=== PATIENT | male | born 1955 | race Caucasian/White ===

== ENCOUNTER 2016-12-26 14:22 | Observation (INO) | payer BC, OTHER ==
[2016-12-26 14:26] VITALS: BMI 28.8
[2016-12-26] MEDS ORDERED: ASPIRIN 81 MG CHEWABLE TABLETS PO ONE (15:03)
[2016-12-26] MEDS ORDERED: ASPIRIN 81 MG CHEWABLE TABLETS ONE (15:09)
--- NOTE | 2016-12-26 15:12 | PDOC ---
History of Present Illness - General History Source: Patient Exam Limitations: No Limitations - History of Present Illness Initial Comments: 12/26/16 15:36 The patient is a 61-year-old male, with a significant past medical history of anomalous right coronary artery disease and a-fib (on xarelto), who presents to the ED with several months of chest discomfort. The patient states that the symptoms come on when he exerts himself. Chest discomfort for months. Pt also reports experiencing shortness of breath. Pt had a stress test done a year and a half ago. The patient was contacted by Dr. Ford and was told to report to the ED for further evaluation. The patient denies any fever, chills, nausea, vomiting, diarrhea, or abdominal pain. Cook Helper Fruit: Dr. 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) CVA: No COPD: No CHF: No Dementia: No Diabetes: No GI Disorders: No Disorders: No HTN: No Hypercholesterolemia: No Liver Disease: Yes (CT SCAN REVEALED RIGHT POSTEROLATERSAL HEPATIC LOBE LESION) Seizures: No Thyroid Disease: No - Surgical History Abdominal Surgery: No Appendectomy: No Cardiac Surgery: Yes (CORONARY ARTERY REPAIR 06/2015) Cholecystectomy: No Lung Surgery: No Neurologic Surgery: No Orthopedic Surgery: No - Immunization History Immunization Up to Date: Yes - Psycho/Social/Smoking Cessation Hx Anxiety: No Suicidal Ideation: No Smoking History: Never smoked Have you smoked in the past 12 months: No Information on smoking cessation initiated: No Hx Alcohol Use: No Drug/Substance Use Hx: No Substance Use Type: None Hx Substance Use Treatment: No <Jean Vera - Last Filed: 12/27/16 07:23> - Past Medical History Allergies/Adverse Reactions: Allergies Allergy/AdvReac Type Severity Reaction Status Date / Time No Known Allergies Allergy Verified 12/26/16 14:23 Home Medications: Ambulatory Orders Rivaroxaban [Xarelto] 1 each PO DAILY 04/06/15 Metoprolol Succinate [Toprol XL -] 25 mg PO DAILY 05/20/16 Multivitamin with Iron [Daily Citlalli with Iron] 1 each PO DAILY 05/20/16 Review of Systems - Review of Systems Able to Perform ROS?: Yes Comments:: 12/26/16 15:37 GENERAL/CONSTITUTIONAL: No fever or chills. No weakness. HEAD, EYES, EARS, NOSE AND THROAT: No change in vision. No ear pain or discharge. No sore throat. CARDIOVASCULAR: +chest pain or shortness of breath. RESPIRATORY: No cough, wheezing, or hemoptysis. SKIN: No rash GASTROINTESTINAL: No nausea, vomiting, diarrhea or constipation. GENITOURINARY: No dysuria, frequency, or change in urination. MUSCULOSKELETAL: No joint or muscle swelling or pain. No neck or back pain. NEUROLOGIC: No headache, vertigo, loss of consciousness, or change in strength/ sensation. ENDOCRINE: No increased thirst. No abnormal weight change. HEMATOLOGIC/LYMPHATIC: No anemia, easy bleeding, or history of blood clots. ALLERGIC/IMMUNOLOGIC: No hives or skin allergy. <Narda Gayle - Last Filed: 12/26/16 16:04> *Physical Exam - Vital Signs Last Vital Signs Temp Pulse Resp BP Pulse Ox 97.4 F L 59 L 18 126/84 100 12/26/16 14:24 12/26/16 14:24 12/26/16 14:24 12/26/16 14:24 12/26/16 14:24 - Physical Exam Comments: 12/26/16 15:37 GENERAL: Awake, alert, and fully oriented, in no acute distress HEAD: No signs of trauma ENT: Auricles normal inspection, hearing grossly normal, nares patent, oropharynx clear EYES: PERRLA, EOMI, sclera anicteric, conjunctiva clear without exudates. Moist mucosa. NECK: Normal ROM, supple, no lymphadenopathy, JVD, or masses LUNGS: Breath sounds equal, clear to auscultation bilaterally. No wheezes, and no crackles HEART: Regular rate and rhythm, normal S1 and S2, no murmurs, rubs or gallops ABDOMEN: Soft, nontender, normoactive bowel sounds. No guarding, no rebound. No masses EXTREMITIES: Normal range of motion, no edema. No clubbing or cyanosis. No cords, erythema, or tenderness NEUROLOGICAL: Cranial nerves II through XII grossly intact. Normal speech, normal gait SKIN: Warm, Dry, normal turgor, no rashes or lesions noted <Narda Gayle - Last Filed: 12/26/16 16:04> - Vital Signs Last Vital Signs Temp Pulse Resp BP Pulse Ox 97.4 F L 59 L 18 126/84 100 12/26/16 14:24 12/26/16 14:24 12/26/16 14:24 12/26/16 14:24 12/26/16 14:24 <Jean Vera - Last Filed: 12/27/16 07:23> Heart Score/ECG Review - History History: Moderately suspicious - Electrocardiogram EKG: Normal - Age Age: 45-65 - Risk Factors Based on the list above the patient has:: 1-2 risk factors - Troponin Troponin: </= normal limit - Score Heart Score - Total: 3 #1 ECG reviewed & interpreted by me at: 14:35 12/26/16 15:09 NSR 54, no std/sofia, normal axis, normal intervals, QTC 394 msec <Jean Vera - Last Filed: 12/27/16 07:23> ED Treatment Course - LABORATORY CBC & Chemistry Diagram: 12/26/16 15:00 12/26/16 15:00 - ADDITIONAL ORDERS Additional order review: 12/26/16 15:00 RBC 4.85 MCV 90.7 MCHC 33.7 RDW 13.9 MPV 9.2 Neutrophils % 63.4 Lymphocytes % 26.7 Monocytes % 8.2 Eosinophils % 1.3 Basophils % 0.4 - Medications Given in the ED: ED Medications Discontinued Medications Generic Name Dose Route Start Last Admin Trade Name Freq PRN Reason Stop Dose Admin Aspirin 324 mg 12/26/16 15:03 12/26/16 15:12 Asa - PO 12/26/16 15:04 324 mg ONCE ONE Administration <Narda Gayle - Last Filed: 12/26/16 16:04> - LABORATORY CBC & Chemistry Diagram: 12/26/16 15:00 12/26/16 15:00 - RADIOLOGY Radiology Studies Ordered: Category Date Time Status CHEST X-RAY PORTABLE* [RAD] Stat Radiology 12/26/16 15:03 Ordered <Jean Vera - Last Filed: 12/27/16 07:23> Medical Decision Making - Medical Decision Making 12/26/16 16:04 Dr. Evans was paged and notified via phone service. <IrwinNarda - Last Filed: 12/26/16 16:04> - Medical Decision Making 12/26/16 15:09 A portion of this note was documented by scribe services under my direction. I have reviewed the details of the note, within reason, and agree with the documentation with the following case summary and management plan written by me. Patient treated in the ED. Nursing notes are reviewed and incorporated into the medical decision-making. Vital signs reviewed. Peripheral IV access obtained by the nurse, laboratory studies are drawn and sent, reviewed and interpreted by myself. Vital Signs Temp Pulse Resp BP Pulse Ox 97.4 F L 59 L 18 126/84 100 12/26/16 14:24 12/26/16 14:24 12/26/16 14:24 12/26/16 14:24 12/26/16 14:24 61-year-old male with past medical history of anomalous right coronary artery, atrial fibrillation on xarelto presents with chest discomfort. Patient reports several months of exertional chest pain. Reports worsening shortness of breath on exertion. Last stress test approximately one and half years ago. Was contacted by patient's primary care doctor, Dr. Ford, who is concerned for acute coronary syndrome which I agree. We'll send chest x-ray, labs including troponin and admit the patient to observation. Patient's can reforming machine operator is Dr. Cannon. 12/26/16 16:11 CBC, BMP 12/26/16 15:00 12/26/16 15:00 CMP Sodium 140 mmol/L (136-145) 12/26/16 15:00 Potassium 4.7 mmol/L (3.5-5.1) 12/26/16 15:00 Chloride 103 mmol/L (98-107) 12/26/16 15:00 Carbon Dioxide 29 mmol/L (21-32) 12/26/16 15:00 Anion Gap 8 (8-16) 12/26/16 15:00 BUN 16 mg/dL (7-18) D 12/26/16 15:00 Creatinine 1.1 mg/dL (0.7-1.3) 12/26/16 15:00 Creat Clearance w eGFR > 60 (>60) 12/26/16 15:00 Random Glucose 80 mg/dL (74-106) 12/26/16 15:00 Calcium 9.2 mg/dL (8.5-10.1) 12/26/16 15:00 Total Bilirubin 0.5 mg/dL (0.2-1.0) 12/26/16 15:00 AST 23 U/L (15-37) 12/26/16 15:00 ALT 24 U/L (12-78) 12/26/16 15:00 Alkaline Phosphatase 78 U/L (45-117) 12/26/16 15:00 Creatine Kinase 104 IU/L (39-308) 12/26/16 15:00 Troponin I < 0.02 ng/ml (0.00-0.05) 12/26/16 15:00 Total Protein 7.1 g/dl (6.4-8.2) 12/26/16 15:00 Albumin 4.1 g/dl (3.4-5.0) 12/26/16 15:00 Chest xray reviewed. No acute findings. 12/26/16 16:[address] Evasn. he accepts under Dr. Ford under tele obs <Jean Vera - Last Filed: 12/27/16 07:23> *DC/Admit/Observation/Transfer - Attestations Scribe Attestion: 12/26/16 15:38 Documentation prepared by Narda Gayle, acting as senior medical transcriptionist for Jean Vera MD. <Narda Gayle - Last Filed: 12/26/16 16:04> - Discharge Dispostion Admit: Yes <Jean Vera - Last Filed: 12/27/16 07:23> Diagnosis at time of Disposition: Chest pain Qualifiers: Chest pain type: unspecified Qualified Code(s): R07.9 - Chest pain, unspecified - Referrals
[2016-12-26 15:23] LABS: BASOPHIL 0.4 % (0-2.0); EOSINOPHIL 1.3 % (0-4.5); MCH 30.6 pg (25.7-33.7); MCHC 33.7 g/dl (32.0-35.9); MEAN CELL VOLUME 90.7 fl (80-96); MEAN PLT VOLUME 9.2 fl (7.5-11.1); NEUTROPHILS 63.4 % (42.8-82.8); PLATELET COUNT 170 K/MM3 (134-434); RDW 13.9 % (11.9-15.9); WHITE BLOOD COUNT 5.9 K/mm3 (4.0-10.0)
[2016-12-26 15:41] LABS: INR 2.11 (0.82-1.09); PROTHROMBIN TIME (PATIENT) 23.6 SEC (9.98-11.88)
[2016-12-26 15:43] LABS: ACTIVATED PTT 48.7 SECONDS (26.9-34.4)
[2016-12-26 15:49] LABS: ALBUMIN 4.1 g/dl (3.4-5.0); ANION GAP 8 (8-16); BILIRUBIN,TOTAL 0.5 mg/dL (0.2-1.0); CALCIUM 9.2 mg/dL (8.5-10.1); CO2 29 mmol/L (21-32); CREATININE 1.1 mg/dL (0.7-1.3); GLUCOSE,RANDOM 80 mg/dL (74-106); SGOT/AST 23 U/L (15-37); SGPT/ALT 24 U/L (12-78); TOT PROT 7.1 g/dl (6.4-8.2)
[2016-12-26 15:51] LABS: ALK PHOS 78 U/L (45-117); TROPONIN I < 0.02 ng/ml (0.00-0.05)
[2016-12-26] MEDS ORDERED: ACETAMINOPHEN 325 MG TABLET (FP) PO PRN (17:03)
[2016-12-26] MEDS: ASPIRIN COATED 81 MG TABLET.EC PO SCH (18:20)
[2016-12-26] MEDS ORDERED: ATORVASTATIN CA 40 MG TABLET (FP) PO SCH (22:00)
[2016-12-26] MEDS ORDERED: METOPROLOL TARTRATE 25 MG TABLET (FP) PO SCH (22:00)
[2016-12-26 22:26] LABS: TROPONIN I < 0.02 ng/ml (0.00-0.05)
[2016-12-27 07:42] LABS: BASOPHIL 0.5 % (0-2.0); EOSINOPHIL 1.8 % (0-4.5); MCH 30.9 pg (25.7-33.7); MEAN CELL VOLUME 90.9 fl (80-96); MEAN PLT VOLUME 8.9 fl (7.5-11.1); NEUTROPHILS 60.7 % (42.8-82.8); PLATELET COUNT 149 K/MM3 (134-434); RDW 13.5 % (11.9-15.9)
[2016-12-27 08:18] LABS: ALBUMIN 3.4 g/dl (3.4-5.0); ANION GAP 7 (8-16); CALCIUM 8.5 mg/dL (8.5-10.1); CO2 28 mmol/L (21-32); GLUCOSE,RANDOM 79 mg/dL (74-106)
[2016-12-27 08:24] LABS: ALK PHOS 68 U/L (45-117); BILIRUBIN,TOTAL 0.8 mg/dL (0.2-1.0); CREATININE 1.2 mg/dL (0.7-1.3); SGOT/AST 21 U/L (15-37); SGPT/ALT 22 U/L (12-78); TOT PROT 6.5 g/dl (6.4-8.2); TROPONIN I < 0.02 ng/ml (0.00-0.05)
[2016-12-27 09:44] VITALS: BP 120/70; PULSE 62; TEMP 98
[2016-12-27] MEDS ORDERED: RIVAROXABAN 20 MG TABLET PO SCH (10:00)
--- NOTE | 2016-12-27 10:04 | CON.CARD ---
Consult - History of Present Illness Chief Complaint: OOB in chair; aysmptomatic History of Present Illness: he patient is a 61-year-old white male, with a significant past medical history of open-heart surgery for anomalous right coronary artery repair (2014) and a- fib (on metoprolol and xarelto), who presents to the ED with several months of chest discomfort. The patient states that the symptoms come on when he exerts himself. Chest discomfort for months. Pt also reports experiencing shortness of breath. Pt had a stress test done a year and a half ago. The patient was contacted by Dr. Ford and was told to report to the ED for further evaluation. The patient denies any fever, chills, nausea, vomiting, diarrhea, or abdominal pain. Angledozer Operator: Dr. Cannon - History Source History Provided By: Patient Limitations to Obtaining History: No Limitations - Past Medical History Cardio/Vascular: Yes: Other (Anomalous RCA coursing between PA/Aorta now s/p re- implantation procedure 06/07/14 [facility]) Renal/: Yes: BPH - Alcohol/Substance Use Hx Alcohol Use: No History of Substance Use: reports: None - Smoking History Smoking history: Never smoked Have you smoked in the past 12 months: No - Social History Usual Living Arrangement: With Spouse ADL: Independent History of Recent Travel: No Home Medications - Allergies Allergies/Adverse Reactions: Allergies Allergy/AdvReac Type Severity Reaction Status Date / Time No Known Allergies Allergy Verified 12/26/16 14:23 - Home Medications Home Medications: Ambulatory Orders Rivaroxaban [Xarelto] 1 each PO DAILY 04/06/15 Metoprolol Succinate [Toprol XL -] 25 mg PO DAILY 05/20/16 Multivitamin with Iron [Daily Citlalli with Iron] 1 each PO DAILY 05/20/16 Vital Signs: Vital Signs Temperature 98 F 12/27/16 09:00 Pulse Rate 62 12/27/16 09:00 Respiratory Rate 18 12/27/16 09:00 Blood Pressure 120/70 12/27/16 09:00 O2 Sat by Pulse Oximetry (%) 98 12/27/16 01:05 - Other Data Labs, Other Data: CBC, BMP 12/27/16 05:35 12/27/16 05:35 INR, PTT INR 2.11 (0.82-1.09) H D 12/26/16 15:00 Troponin, BNP 12/26/16 12/27/16 21:45 05:35 Troponin I < 0.02 < 0.02 B-Natriuretic Peptide 106.69 Troponin, BNP 12/26/16 12/27/16 21:45 05:35 Troponin I < 0.02 < 0.02 B-Natriuretic Peptide 106.69
[2016-12-27] MEDS ORDERED: METOPROLOL SUCCINATE 25 MG TAB.SR.24H (FP) PO SCH (10:15)
[2016-12-27] MEDS: ASPIRIN COATED 81 MG TABLET.EC PO SCH (10:28)
[2016-12-27 10:43] LABS: CHOLESTEROL 237 mg/dL (50-200); LDL CHOLESTEROL (ONLY SJRH) 153 mg/dL (5-100)
[2016-12-27 10:50] LABS: THYROID STIMULATING HORMONE 2.41 uIU/ml (0.358-3.74)
--- NOTE | 2016-12-27 11:30 | HP ---
Admitting History and Physical - Admission History of Present Illness: 61-year-old white male, with a significant past medical history of open-heart surgery for anomalous right coronary artery repair (2014) and a-fib (on metoprolol and xarelto), who presents to the ED with several months of chest discomfort. The patient states that the symptoms come on when he exerts himself. Chest discomfort for months. Pt also reports experiencing shortness of breath. Pt had a stress test done a year and a half ago. The patient was contacted by Dr. Ford and was told to report to the ED for further evaluation. Patient states he feels better. No chest pain at this time and wants to go home - Past Medical History DOMESTIC CLEANER: No: CVA Cardiovascular: Yes: AFIB, HTN, Hyperlipdemia, Other (Anomalous RCA coursing between PA/Aorta now s/p re-implantation procedure 06/07/14 [facility]) Pulmonary: No: Asthma Gastrointestinal: No: Ascites Renal/: Yes: BPH Musculoskeletal: Yes: Other (joint pain) - Smoking History Smoking history: Never smoked Have you smoked in the past 12 months: No - Alcohol/Substance Use Hx Alcohol Use: No History of Substance Use: reports: None - Social History ADL: Independent History of Recent Travel: No Home Medications - Allergies Allergies/Adverse Reactions: Allergies Allergy/AdvReac Type Severity Reaction Status Date / Time No Known Allergies Allergy Verified 12/26/16 14:23 - Home Medications Home Medications: Ambulatory Orders Rivaroxaban [Xarelto] 1 each PO DAILY 04/06/15 Metoprolol Succinate [Toprol XL -] 25 mg PO DAILY 05/20/16 Multivitamin with Iron [Daily Citlalli with Iron] 1 each PO DAILY 05/20/16 Acetaminophen [Tylenol .Regular Strength -] 650 mg PO Q4H PRN #0 tablet Aspirin Coated [Ecotrin -] 81 mg PO DAILY tab 12/27/16 Atorvastatin Ca [Lipitor] 40 mg PO HS #30 tablet 12/27/16 Physical Examination Vital Signs: Vital Signs Temperature 98 F 12/27/16 09:00 Pulse Rate 62 12/27/16 09:00 Respiratory Rate 18 12/27/16 09:00 Blood Pressure 120/70 12/27/16 09:00 O2 Sat by Pulse Oximetry (%) 98 06/25/17 01:05 Neck: Yes: Supple Cardiovascular: Yes: Regular Rate and Rhythm Respiratory: Yes: Regular, CTA Bilaterally Gastrointestinal: Yes: Normal Bowel Sounds, Soft. No: Tenderness Edema: No Labs: CBC, BMP 12/27/16 05:35 12/27/16 05:35 Imaging - Results Chest X-ray: Report Reviewed Problem List - Problems (1) Chest pain Assessment/Plan: CE NEGATIVE PT REFUSES TO STAY--NO CP HE AGRES TO DO STRESS TEST THIS WEEK CONTINUE WITH MEDS--INCLUDING ASA STATIN Code(s): R07.9 - CHEST PAIN, UNSPECIFIED Qualifiers: Chest pain type: unspecified Qualified Code(s): R07.9 - Chest pain, unspecified (2) Status post cardiac surgery Assessment/Plan: PER CARDIO Code(s): Z98.89 - OTHER SPECIFIED POSTPROCEDURAL STATES * DO NOT USE * (3) Paroxysmal atrial fibrillation Assessment/Plan: CONTINUE WITH AC--XARELTO Code(s): I48.0 - PAROXYSMAL ATRIAL FIBRILLATION (4) HLD (hyperlipidemia) Assessment/Plan: LIPITOR Code(s): E78.5 - HYPERLIPIDEMIA, UNSPECIFIED
--- NOTE | 2016-12-27 20:37 | EKG ---
Test Reason : Blood Pressure : / mmHG Vent. Rate : 063 BPM Atrial Rate : 063 BPM P-R Int : 172 ms QRS Dur : 082 ms QT Int : 406 ms P-R-T Axes : 038 030 066 degrees QTc Int : 415 ms NORMAL SINUS RHYTHM NORMAL ECG WHEN COMPARED WITH ECG OF 26-DEC-2016 14:31, NO SIGNIFICANT CHANGE WAS FOUND Confirmed by TERRI VICTORIA MD ([id number]) on 12/27/2016 8:37:29 PM Referred By: JOSE CAMPO Confirmed By:TERRI VICTORIA MD
--- NOTE | 2016-12-27 20:37 | EKG ---
Test Reason : Blood Pressure : / mmHG Vent. Rate : 054 BPM Atrial Rate : 054 BPM P-R Int : 168 ms QRS Dur : 082 ms QT Int : 416 ms P-R-T Axes : 027 020 058 degrees QTc Int : 394 ms SINUS BRADYCARDIA OTHERWISE NORMAL ECG WHEN COMPARED WITH ECG OF 04-APR-2016 14:31, NO SIGNIFICANT CHANGE WAS FOUND Confirmed by TERRI VICTORIA MD ([id number]) on 12/27/2016 8:37:11 PM Referred By: Confirmed By:TERRI VICTORIA MD
== END 2016-12-27 12:12 | disposition home or self-care (01) ==
LOC: JER 14:22 → JERBED 16:11 → J4W 20:10
PROVIDERS: ADMIT Family Medicine; ATTEND Family Medicine
DX: R07.9 Chest pain, unspecified (principal); I48.0 Paroxysmal atrial fibrillation; Z79.01 Long term (current) use of anticoagulants; Z86.73 Personal history of transient ischemic attack (TIA), and cerebral infarction without residual deficits; I10 Essential (primary) hypertension; E78.5 Hyperlipidemia, unspecified; J45.909 Unspecified asthma, uncomplicated; N40.0 Benign prostatic hyperplasia without lower urinary tract symptoms; Z98.890 Other specified postprocedural states
CPT/HCPCS: 36415; 71010-TC; 80053; 80061; 82550; 83721; 83880; 84443; 84484; 85025; 85610; 85730; 93005; 93010; 99285-25; G0378

== ENCOUNTER 2018-06-20 16:39 | Emergency (ER) | payer BC, OTHER ==
[2018-06-20 16:49] VITALS: TEMP 97.6; BMI 28.0
--- NOTE | 2018-06-20 16:51 | PDOC ---
Rapid Medical Evaluation Chief Complaint: Pain Medical Evaluation: Allergies Allergy/AdvReac Type Severity Reaction Status Date / Time No Known Allergies Allergy Verified 12/26/16 14:23 06/20/18 16:45 I have performed a brief in-person evaluation of this patient. The patient presents with a chief complaint of: testicular pain , started on right side then moved to both. + swelling Pertinent physical exam findings: pale, tender to lower abd I have ordered the following: US scrotum, lower abd/ inguinal area The patient will proceed to the ED for further evaluation. 06/20/18 16:50 Discharge Disposition - Referrals Referrals: Reginaldo Ford MD [Primary Care Provider] - - Patient Instructions - Post Discharge Activity
[2018-06-20 17:16] LABS: URINE APPEARANCE CLEAR; URINE BILIRUBIN NEGATIVE (<2.0 mg/dL); URINE COLOR STRAW; URINE GLUCOSE (UA) NEGATIVE (NEGATIVE); URINE KETONE NEGATIVE (NEGATIVE); URINE LEUK ESTERASE NEGATIVE (NEGATIVE); URINE NITRITE NEGATIVE (NEGATIVE); URINE PROTEIN NEGATIVE (NEGATIVE); URINE UROBILINOGEN NEGATIVE mg/dL (0.2-1.0)
--- NOTE | 2018-06-20 17:44 | PDOC ---
Attending Attestation - Resident Resident Name: Mustapha Webster - ED Attending Attestation I have performed the following: I have examined & evaluated the patient, The case was reviewed & discussed with the resident, I agree w/resident's findings & plan, Exceptions are as noted - HPI HPI: 06/20/18 17:44 63 yo male with rt testicular pain x 3 days - Physicial Exam PE: 06/20/18 18:30 63 yo male presents rt sided testicular pain for several days. 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
--- NOTE | 2018-06-20 17:50 | PDOC ---
History of Present Illness - General Chief Complaint: Pain Stated Complaint: Tetsticle pain Time Seen by Provider: 06/20/18 17:13 - History of Present Illness Initial Comments: 06/20/18 17:50 63M with pmh of open-heart surgery for anomalous right coronary artery repair ( 2014) and a-fib (on metoprolol and xarelto) and BPH on flomax presents to the ED for right testicular pain for the past 3 days. Onset was progressive worsening with time, worse last night better today. Patient didn't take anything for the pain. Worse with movements like walking. Denies fever, chills, dysuria, or penile discharge. No history of appendicitis or hernia. 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) CVA: No COPD: No CHF: No Dementia: No Diabetes: No GI Disorders: No Disorders: No HTN: No Hypercholesterolemia: No Liver Disease: Yes (CT SCAN REVEALED RIGHT POSTEROLATERSAL HEPATIC LOBE LESION) Seizures: No Thyroid Disease: No - Surgical History Abdominal Surgery: No Appendectomy: No Cardiac Surgery: Yes (CORONARY ARTERY REPAIR 06/2015) Cholecystectomy: No Lung Surgery: No Neurologic Surgery: No Orthopedic Surgery: No - Immunization History Immunization Up to Date: Yes - Suicide/Smoking/Psychosocial Hx Smoking History: Never smoked Have you smoked in the past 12 months: No Information on smoking cessation initiated: No Hx Alcohol Use: No Drug/Substance Use Hx: No Substance Use Type: None Hx Substance Use Treatment: No Review of Systems - Review of Systems Able to Perform ROS?: Yes Is the patient limited Portuguese proficient: No Constitutional: No: Symptoms Reported HEENTM: No: Symptoms Reported Respiratory: No: Symptoms reported Cardiac (ROS): No: Symptoms Reported ABD/GI: No: Constipated, Diarrhea, Nausea, Poor Fluid Intake, Vomiting, Indigestion : Yes: Pain (right teste), Testicular Pain, Other. No: Burning, Dysuria, Hematuria, Incontinence, Testicular Mass Musculoskeletal: No: Symptoms Reported Integumentary: No: Symptoms Reported All Other Systems: Reviewed and Negative *Physical Exam - Vital Signs Last Vital Signs Temp Pulse Resp BP Pulse Ox 97.6 F 64 18 128/85 98 06/20/18 16:46 06/20/18 16:46 06/20/18 16:46 06/20/18 16:46 06/20/18 16:46 - Physical Exam General Appearance: Yes: Nourished, Appropriately Dressed. No: Apparent Distress HEENT: positive: EOMI, ADRIENNE, Normal ENT Inspection Respiratory/Chest: positive: Lungs Clear, Normal Breath Sounds. negative: Chest Tender, Respiratory Distress Cardiovascular: positive: Regular Rhythm, Regular Rate, S1, S2 Gastrointestinal/Abdominal: positive: Normal Bowel Sounds, Flat, Soft. negative : Tender Male Genitalia: positive: testicular tenderness, epididymus tender. negative: discharge, hematuria Extremity: positive: Normal Capillary Refill, Normal Inspection, Normal Range of Motion Neurologic: positive: Fully Oriented, Alert, Normal Mood/Affect, Normal Response , Motor Strength 5/5 Moderate Sedation - Procedure Monitoring Vital Signs: Procedure Monitoring Vital Signs Temperature 97.6 F 06/20/18 16:46 Pulse Rate 64 06/20/18 16:46 Respiratory Rate 18 06/20/18 16:46 Blood Pressure 128/85 06/20/18 16:46 O2 Sat by Pulse Oximetry (%) 98 06/20/18 16:46 ED Treatment Course - ADDITIONAL ORDERS Additional order review: Laboratory Results 06/20/18 17:00 Urine Color Straw Urine Appearance Clear Urine pH 6.0 Ur Specific [place] 1.004 L Urine Protein Negative Urine Glucose (UA) Negative Urine Ketones Negative Urine Blood Negative Urine Nitrite Negative Urine Bilirubin Negative Urine Urobilinogen Negative Ur Leukocyte Esterase Negative Medical Decision Making - Medical Decision Making 06/20/18 18:06 testicular torsion vs epididimitis vs appendicitis PAtient went straight to U/S, pending read. No anorexia or abdominal pain makes appendicitis unlikely. Will r/o UTI with UA 06/20/18 19:25 No UTI on UA. Both testicles appear unremarkable with normal vascular flow and without evidence of torsion. Prominent right epididymal head with 2 simple cysts versus spermatoceles the largest measuring 1.1 x 0.8 cm. A couple of tiny left epididymal spermatoceles are also present measuring approximately 3 mm each. Small left and tiny right hydrocele. There is no evidence of a varicocele. Elongated normal size right and left groin lymph node, as described above which are nonspecific. Correlate clinically for further evaluation Will treat for epididymitis. Spoke to Urologist automation controls expert, Dr Shelby who will see the patient in the office tomorrow. 06/20/18 19:31 *DC/Admit/Observation/Transfer Diagnosis at time of Disposition: Acute epididymitis - Discharge Dispostion Condition at time of disposition: Improved Decision to Admit order: No - Prescriptions Prescriptions: Levofloxacin [Levaquin] 250 mg PO DAILY 3 Days #3 tablet - Referrals Referrals: Reginaldo Ford MD [Primary Care Provider] - Len Arana MD [Staff Physician] - Constantin Shelby MD., MD [Staff Physician] - - Patient Instructions Printed Discharge Instructions: DI for Epididymitis Additional Instructions: Follow up with urologist Dr. Alan tomorrow at the office. Come back for any new, worsening or concerning symptoms. - Post Discharge Activity
[2018-06-20] MEDS ORDERED: AZITHROMYCIN 500 MG TABLET PO ONE ×2 (19:08→19:38)
[2018-06-20] MEDS ORDERED: ACETAMINOPHEN 325 MG TABLET (FP) PO ONE (19:15)
[2018-06-20] MEDS ORDERED: LIDOCAINE HCL 1%, 10 MG/ML (50 mL VIAL) SQ STA (19:37)
[2018-06-20] MEDS ORDERED: LIDOCAINE HCL 2% (20ML MULTI-DOSE VIAL) NR ONE (19:41)
[2018-06-20] MEDS ORDERED: ACETAMINOPHEN 325 MG TABLET (FP) ONE (19:41)
[2018-06-20] MEDS ORDERED: cefTRIAXone SODIUM 1 GM VIAL ONE (19:42)
[2018-06-20] MEDS ORDERED: AZITHROMYCIN 500 MG TABLET ONE (19:43)
[2018-06-20] MEDS ORDERED: LIDOCAINE HCL 1%, 10 MG/ML (20ML VIAL) ONE (19:47)
[2018-06-20 20:02] VITALS: BP 124/82; PULSE 67
== END 2018-06-20 20:02 | disposition home or self-care (01) ==
LOC: JER 16:39
DX: N45.1 Epididymitis (principal); I48.91 Unspecified atrial fibrillation
CPT/HCPCS: 76856-TC; 76870-TC; 81003; 87086; 99281-25

== ENCOUNTER 2020-07-20 19:04 | Emergency (ER) | payer OTHER ==
[2020-07-20 19:15] VITALS: BMI 28.0
[2020-07-20] MEDS ORDERED: MAG HYDROX/AL HYDROX/SIMETH 30 ML UNIT-DOSE CUP PO ONE (19:58)
[2020-07-20] MEDS ORDERED: MAG HYDROX/AL HYDROX/SIMETH 30 ML UNIT-DOSE CUP ONE (20:07)
[2020-07-20 20:53] LABS: CHLORIDE 108 mmol/L (98-107); POTASSIUM 4.1 mmol/L (3.5-5.1); SODIUM 142 mmol/L (136-145)
[2020-07-20 20:56] LABS: CALCIUM 8.9 mg/dL (8.5-10.1)
[2020-07-20 20:57] LABS: ALBUMIN 3.6 g/dl (3.4-5.0); ANION GAP 8 MMOL/L (8-16); BLOOD UREA NITROGEN 27.7 mg/dL (7-18); CO2 27 mmol/L (21-32); GLUCOSE,RANDOM 117 mg/dL (74-106)
[2020-07-20 21:00] LABS: CREATININE 1.2 mg/dL (0.55-1.3); SGOT/AST 16 U/L (15-37); SGPT/ALT 22 U/L (13-61)
[2020-07-20 21:01] LABS: BILIRUBIN,TOTAL 0.3 mg/dL (0.2-1)
[2020-07-20 21:02] LABS: TOT PROT 6.6 g/dl (6.4-8.2)
[2020-07-20 21:04] LABS: ALK PHOS 86 U/L (45-117)
[2020-07-20] MEDS ORDERED: LIDOCAINE 5% TOPICAL PATCH TP ONE (21:20)
[2020-07-20] MEDS ORDERED: METHOCARBAMOL 500 MG TABLET PO ONE (21:20)
[2020-07-20] MEDS ORDERED: LIDOCAINE 5% TOPICAL PATCH ONE (21:24)
[2020-07-20] MEDS ORDERED: METHOCARBAMOL 500 MG TABLET ONE (21:24)
[2020-07-20 21:28] LABS: BASO % 0.8 % (0-2.0); EOS % 1.2 % (0-4.5); HEMATOCRIT 37.8 % (35.4-49); HEMOGLOBIN 12.3 GM/dL (11.7-16.9); LYMPH % 26.5 % (8-40); MCH 27.2 pg (25.7-33.7); MCHC 32.6 g/dl (32.0-35.9); MEAN CELL VOLUME 83.4 fl (80-96); MEAN PLT VOLUME 9.2 fl (7.5-11.1); MONO % 6.6 % (3.8-10.2); NEUT % 64.9 % (42.8-82.8); PLATELET COUNT 188 K/MM3 (134-434); RBC 4.53 M/mm3 (4.00-5.60); WHITE BLOOD COUNT 4.3 K/mm3 (4.0-10.0)
[2020-07-20 21:46] VITALS: BP 126/89; PULSE 89; TEMP 98.3
[2020-07-20] MEDS ORDERED: LIDOCAINE PATCH REMOVAL MC SCH (22:00)
== END 2020-07-20 21:46 | disposition home or self-care (01) ==
LOC: JER 19:04
DX: R07.9 Chest pain, unspecified (principal); K21.9 Gastro-esophageal reflux disease without esophagitis
CPT/HCPCS: 36415; 71046-TC-FY; 80053; 82550; 84484; 85025; 93005; 93010; 99284-25; C9803; U0003

== ENCOUNTER 2021-06-25 09:26 | Emergency (ER) | payer OTHER ==
[2021-06-25 10:07] VITALS: TEMP 97.7; BMI 28.0
[2021-06-25 12:01] LABS: BASO % 0.5 % (0-2.0); HEMATOCRIT 41.1 % (35.4-49); LYMPH % 18.5 % (8-40); MCH 31.9 pg (25.7-33.7); MCHC 34.1 g/dl (32.0-35.9); MEAN CELL VOLUME 93.5 fl (80-96); MEAN PLT VOLUME 8.7 fl (7.5-11.1); MONO % 6.6 % (3.8-10.2); NEUT % 73.4 % (42.8-82.8); PLATELET COUNT 148 10^3/uL (134-434); RBC 4.39 M/mm3 (4.00-5.60); RDW 13.8 % (11.9-15.9); WHITE BLOOD COUNT 5.2 K/mm3 (4.0-10.0)
[2021-06-25 12:07] LABS: INR 1.3 (0.83-1.09); PROTHROMBIN TIME (PATIENT) 15.2 SEC (9.7-13.0)
[2021-06-25 12:20] LABS: CHLORIDE 109 mmol/L (98-107); SODIUM 140 mmol/L (136-145)
[2021-06-25 12:22] LABS: CALCIUM 8.6 mg/dL (8.5-10.1)
[2021-06-25 12:23] LABS: ALBUMIN 3.4 g/dl (3.4-5.0); ANION GAP 5 MMOL/L (8-16); BLOOD UREA NITROGEN 18.8 mg/dL (7-18); CO2 26 mmol/L (21-32); GLUCOSE,RANDOM 80 mg/dL (74-106)
[2021-06-25 12:26] LABS: SGOT/AST 24 U/L (15-37); SGPT/ALT 29 U/L (13-61)
[2021-06-25 12:28] LABS: BILIRUBIN,TOTAL 0.5 mg/dL (0.2-1); TOT PROT 6.6 g/dl (6.4-8.2)
[2021-06-25 12:29] LABS: ALK PHOS 82 U/L (45-117)
[2021-06-25 16:53] VITALS: BP 133/59; PULSE 58
== END 2021-06-25 16:51 | disposition home or self-care (01) ==
LOC: JER 09:26
DX: R07.9 Chest pain, unspecified (principal)
CPT/HCPCS: 36415; 71045-TC-FY; 71275-TC; 80053; 82550; 84484; 85025; 85610; 85730; 93005; 93010; 99285-25; C9803; Q9967; U0003; U0005

== ENCOUNTER 2022-02-17 14:59 | Emergency (ER) | payer OTHER ==
[2022-02-17 15:09] VITALS: BP 128/78; PULSE 56; RESP 18; TEMP 98; BMI 28.0
== END 2022-02-17 17:48 | disposition home or self-care (01) ==
LOC: JER 14:59
DX: S70.11XA Contusion of right thigh, initial encounter (principal)
CPT/HCPCS: 99283-25